=== PATIENT | male | born 1955 | race Caucasian/White ===

== ENCOUNTER 2016-08-24 17:41 | Inpatient (IN) | payer OTHER, MEDICAID ==
[~2016-08-24] VITALS: Ht 175.3 cm; Wt 77.6 kg
[2016-08-24 17:41] VITALS: BP_SYST 127
[2016-08-24] MEDS ORDERED: NACL 0.9% 1,000 ML IV SCH (17:53)
[2016-08-24] MEDS ORDERED: VANCOMYCIN HCL 1,000 MG in D5W 250 ML IV ONE (18:00)
[2016-08-24] MEDS ORDERED: PIPERACILLIN/TAZO 3.38 GM in D5W 50 ML IV ONE (18:00)
[2016-08-24] MEDS ORDERED: DILT240C91 PO (18:15)
[2016-08-24] MEDS ORDERED: MULT PO (18:15)
[2016-08-24] MEDS ORDERED: ALBUTEROL SULFATE 0.083% 2.5 MG/3 ML VIAL.NEB IH ONE (18:15)
[2016-08-24] MEDS ORDERED: GUAI600T86 PO (18:15)
[2016-08-24] MEDS ORDERED: MAGN400O4 PO (18:15)
[2016-08-24] MEDS ORDERED: ACET-2165 PO (18:15)
[2016-08-24] MEDS ORDERED: MELA3TAB37 PO (18:15)
[2016-08-24] MEDS ORDERED: ALBU2.5V7 INH (18:15)
[2016-08-24] MEDS ORDERED: FLUT1BLS3 INH (18:15)
[2016-08-24] MEDS ORDERED: SER25 PO (18:15)
[2016-08-24] MEDS ORDERED: IPRATROPIUM BROM 0.5 MG/2.5 ML VIAL.NEB (ATROVENT) IH ONE (18:15)
[2016-08-24] MEDS ORDERED: ATRMDI INH (18:15)
[2016-08-24] MEDS ORDERED: PRO40 PO (18:15)
[2016-08-24] MEDS ORDERED: FOLI-43 PO (18:15)
[2016-08-24] MEDS ORDERED: methylPREDNISolone SOD SUCC/PF 62.5 MG/ML VIAL IVP ONE (18:15)
[2016-08-24] MEDS ORDERED: CYAN100T PO (18:16)
[2016-08-24] MEDS ORDERED: PYRI25TA13 PO (18:16)
[2016-08-24] MEDS ORDERED: SODI1TAB3 PO (18:16)
[2016-08-24] MEDS ORDERED: ASCO500T20 PO (18:16)
[2016-08-24] MEDS ORDERED: MONT10TA25 PO (18:16)
[2016-08-24] MEDS ORDERED: TRAM50TA92 PO (18:16)
[2016-08-24] MEDS ORDERED: PIPERACILLIN/TAZOBACTAM 3.375 GM/VIAL (ZOSYN) IV ONE ×2 (18:31→21:41)
[2016-08-24 18:40] LABS: BASOPHILS % (AUTO) 0.3 % (0.0-2.0); EOSINOPHILS # (AUTO) 0.1 K/uL (0.0-0.4); HEMATOCRIT 37.2 % (36-54); HEMOGLOBIN 12.4 g/dL (14.0-18.0); LYMPHOCYTES # (AUTO) 2.5 K/uL (1.0-5.5); LYMPHOCYTES % (AUTO) 18.7 % (20.5-51.5); MEAN CORPUSCULAR HEMOGLOBIN 29 pg (27-31); MEAN CORPUSCULAR HGB CONC 33 % (32-36); MEAN CORPUSCULAR VOLUME 88 fL (79.0-98.0); MONOCYTES # (AUTO) 1.2 K/uL (0.0-1.0); MONOCYTES % (AUTO) 8.9 % (1.7-9.3); NEUTROPHILS # (AUTO) 9.4 K/uL (1.8-7.7); NEUTROPHILS % (AUTO) 71.1 % (40.0-70.0); PLATELET COUNT (AUTO) 394 K/uL (130-430); RED BLOOD CELL COUNT(AUTO) 4.24 MIL/uL (4.2-6.2); RED CELL DISTRIBUTION WIDTH 14.4 % (9.0-15.0); WHITE BLOOD COUNT (AUTO) 13.2 K/uL (4.8-10.8)
[2016-08-24 18:42] LABS: INR 1.1 (0.80-1.20); PROTHROMBIN TIME 12.3 SECS (9.5-12.5)
[2016-08-24 18:47] LABS: CALCIUM 9.1 mg/dL (8.4-11.0); CREATININE 0.92 mg/dL (0.55-1.30); POTASSIUM 3.2 mmol/L (3.5-5.1)
[2016-08-24 18:52] LABS: ALBUMIN 3.1 g/dL (3.4-4.8); TOTAL BILIRUBIN 0.5 mg/dL (0.0-1.0); TOTAL PROTEIN, SERUM 7.6 g/dL (6.4-8.3)
[2016-08-24] MEDS ORDERED: POTASSIUM CHLORIDE 20 MEQ TAB.PRT.SR PO ONE (19:00)
[2016-08-24] MEDS ORDERED: VANCOMYCIN HCL 1000 MG/VIAL IV ONE (19:28)
[2016-08-24 20:00] VITALS: BP_SYST 115
[2016-08-24] MEDS ORDERED: traMADol HCL HCL 50 MG TABLET (ULTRAM) PO SCH (20:30)
[2016-08-24] MEDS ORDERED: ACETAMINOPHEN 325 MG TABLET PO PRN (20:30)
[2016-08-24] MEDS ORDERED: LevALBUTEROL HCL 1.25 MG/0.5 ML *CONC.* VIAL.NEB (XOPENEX CONC.) INH PRN (20:30)
[2016-08-24] MEDS: methylPREDNISolone SOD SUCC/PF 62.5 MG/ML VIAL IVP SCH (20:30)
[2016-08-24] MEDS ORDERED: MILK OF MAGNESIA 30 ML UDC PO PRN ×2 (20:30)
[2016-08-24 21:00] VITALS: BP_SYST 113
[2016-08-24] MEDS: FLUTICASONE/VILANTEROL 1 EACH BLST.W.DEV INH SCH (21:00)
[2016-08-24 22:00] VITALS: BP_SYST 117
[2016-08-24] MEDS: ENOXAPARIN SODIUM 40 MG/0.4 ML SYRINGE SUBCUT SCH (22:21)
[2016-08-24 23:00] VITALS: BP_SYST 114
[2016-08-24] MEDS: LevALBUTEROL HCL 1.25 MG/0.5 ML *CONC.* VIAL.NEB (XOPENEX CONC.) INH SCH (23:43)
[2016-08-25] VITALS (25 sets, daily range): BP systolic 103–147
[2016-08-25] MEDS: methylPREDNISolone SOD SUCC/PF 62.5 MG/ML VIAL IVP SCH ×4 (00:11→17:28)
[2016-08-25] MEDS: PIPERACILLIN/TAZO 3.375/DEX-IS 50 ML IV SCH ×4 (00:16→17:25)
[2016-08-25] MEDS ORDERED: VANCOMYCIN HCL 1 GM/NS PREMIX 250 ML IV SCH (06:00)
[2016-08-25 06:33] LABS: EOSINOPHILS % (AUTO) 0.1 % (0.0-4.0); HEMATOCRIT 35.2 % (36-54); HEMOGLOBIN 11.6 g/dL (14.0-18.0); LYMPHOCYTES # (AUTO) 0.5 K/uL (1.0-5.5); LYMPHOCYTES % (AUTO) 6.2 % (20.5-51.5); MEAN CORPUSCULAR HEMOGLOBIN 29 pg (27-31); MEAN CORPUSCULAR HGB CONC 33 % (32-36); MEAN CORPUSCULAR VOLUME 89 fL (79.0-98.0); MONOCYTES # (AUTO) 0.1 K/uL (0.0-1.0); MONOCYTES % (AUTO) 0.8 % (1.7-9.3); NEUTROPHILS # (AUTO) 7.2 K/uL (1.8-7.7); NEUTROPHILS % (AUTO) 92.9 % (40.0-70.0); PLATELET COUNT (AUTO) 362 K/uL (130-430); RED BLOOD CELL COUNT(AUTO) 3.97 MIL/uL (4.2-6.2); RED CELL DISTRIBUTION WIDTH 13.8 % (9.0-15.0); WHITE BLOOD COUNT (AUTO) 7.8 K/uL (4.8-10.8)
[2016-08-25 06:38] LABS: CALCIUM 9.4 mg/dL (8.4-11.0); CREATININE 1.01 mg/dL (0.55-1.30); POTASSIUM 3.6 mmol/L (3.5-5.1)
[2016-08-25 07:07] LABS: BILIRUBIN,URINE 1+ (NEGATIVE); BLOOD, URINE NEGATIVE (NEGATIVE); CLARITY/URINE CLEAR (CLEAR); COLOR,URINE YELLOW (YELLOW); GLUCOSE,URINE NEGATIVE (NEGATIVE); KETONES,URINE 2+ (NEGATIVE); LEUKOCYTE ESTERASE ,URINE NEGATIVE (NEGATIVE); NITRITE, URINE NEGATIVE (NEGATIVE); PROTEIN URINE 2+ (NEGATIVE); UROBILINOGEN,URINE 0.2 (0.2-1.0)
[2016-08-25] MEDS: LevALBUTEROL HCL 1.25 MG/0.5 ML *CONC.* VIAL.NEB (XOPENEX CONC.) INH SCH (07:34)
[2016-08-25] MEDS: MONTELUKAST 10 MG TABLET PO SCH (08:03)
[2016-08-25 08:04] LABS: BACTERIA,URINE RARE /HPF (None Seen); MUCUS,URINE 1+ /LPF (None Seen); RBC,URINE 0-3 /HPF (0-3); WBC,URINE 0-3 /HPF (0-3)
[2016-08-25] MEDS: ASCORBIC ACID 500 MG TABLET PO SCH (08:04)
[2016-08-25] MEDS: PANTOPRAZOLE SODIUM 40 MG TAB PO SCH (08:04)
[2016-08-25] MEDS: QUEtiapine FUMARATE 25 MG TABLET PO SCH (08:04)
[2016-08-25] MEDS: MULTIVITAMINS TAB 1 TABLET PO SCH (08:04)
[2016-08-25] MEDS: FOLIC ACID 1 MG TABLET PO SCH (08:04)
[2016-08-25] MEDS: SODIUM CHLORIDE 500 MG TABLET PO SCH (08:04)
[2016-08-25] MEDS: DILTIAZEM HCL 240 MG CAP.SR.24H PO SCH (08:05)
[2016-08-25] MEDS ORDERED: VANCOMYCIN HCL 1,250 MG in NS 250 ML IV SCH (09:00)
[2016-08-25] MEDS: FLUTICASONE/VILANTEROL 1 EACH BLST.W.DEV INH SCH ×2 (09:12→22:18)
[2016-08-25] MEDS: AZITHROMYCIN 500 MG in NS 250 ML IV SCH (17:28)
[2016-08-25] MEDS: IPRATROPIUM/ALBUTEROL SULFATE 3 ML AMPUL.NEB INH SCH ×2 (20:49→23:14)
[2016-08-25] MEDS: ENOXAPARIN SODIUM 40 MG/0.4 ML SYRINGE SUBCUT SCH (21:24)
[2016-08-26] VITALS (19 sets, daily range): BP systolic 100–155
[2016-08-26] MEDS: methylPREDNISolone SOD SUCC/PF 62.5 MG/ML VIAL IVP SCH ×5 (00:05→23:39)
[2016-08-26] MEDS: PIPERACILLIN/TAZO 3.375/DEX-IS 50 ML IV SCH ×5 (00:05→23:39)
[2016-08-26] MEDS: IPRATROPIUM/ALBUTEROL SULFATE 3 ML AMPUL.NEB INH SCH ×7 (03:00→22:52)
[2016-08-26 06:50] LABS: BASOPHILS % (AUTO) 0.2 % (0.0-2.0); HEMATOCRIT 33.8 % (36-54); HEMOGLOBIN 11.1 g/dL (14.0-18.0); LYMPHOCYTES # (AUTO) 0.5 K/uL (1.0-5.5); LYMPHOCYTES % (AUTO) 5.2 % (20.5-51.5); MEAN CORPUSCULAR HEMOGLOBIN 29 pg (27-31); MEAN CORPUSCULAR HGB CONC 33 % (32-36); MEAN CORPUSCULAR VOLUME 89 fL (79.0-98.0); MONOCYTES # (AUTO) 0.4 K/uL (0.0-1.0); MONOCYTES % (AUTO) 4.1 % (1.7-9.3); NEUTROPHILS # (AUTO) 9.3 K/uL (1.8-7.7); NEUTROPHILS % (AUTO) 90.5 % (40.0-70.0); PLATELET COUNT (AUTO) 377 K/uL (130-430); RED BLOOD CELL COUNT(AUTO) 3.81 MIL/uL (4.2-6.2); RED CELL DISTRIBUTION WIDTH 14.2 % (9.0-15.0); WHITE BLOOD COUNT (AUTO) 10.2 K/uL (4.8-10.8)
[2016-08-26 07:21] LABS: CALCIUM 9.2 mg/dL (8.4-11.0); CREATININE 0.82 mg/dL (0.55-1.30); POTASSIUM 3.3 mmol/L (3.5-5.1)
[2016-08-26 07:54] LABS: BILIRUBIN,URINE NEGATIVE (NEGATIVE); BLOOD, URINE NEGATIVE (NEGATIVE); CLARITY/URINE CLEAR (CLEAR); COLOR,URINE YELLOW (YELLOW); GLUCOSE,URINE 1+ (NEGATIVE); KETONES,URINE 1+ (NEGATIVE); LEUKOCYTE ESTERASE ,URINE NEGATIVE (NEGATIVE); NITRITE, URINE NEGATIVE (NEGATIVE); PROTEIN URINE 2+ (NEGATIVE); UROBILINOGEN,URINE 0.2 (0.2-1.0)
[2016-08-26] MEDS: ASCORBIC ACID 500 MG TABLET PO SCH (08:11)
[2016-08-26] MEDS: QUEtiapine FUMARATE 25 MG TABLET PO SCH (08:11)
[2016-08-26] MEDS: MONTELUKAST 10 MG TABLET PO SCH (08:11)
[2016-08-26] MEDS: PANTOPRAZOLE SODIUM 40 MG TAB PO SCH (08:11)
[2016-08-26] MEDS: FOLIC ACID 1 MG TABLET PO SCH (08:11)
[2016-08-26] MEDS: MULTIVITAMINS TAB 1 TABLET PO SCH (08:11)
[2016-08-26] MEDS: FLUTICASONE/VILANTEROL 1 EACH BLST.W.DEV INH SCH ×2 (08:12→21:00)
[2016-08-26] MEDS: SODIUM CHLORIDE 500 MG TABLET PO SCH (08:12)
[2016-08-26] MEDS: DILTIAZEM HCL 240 MG CAP.SR.24H PO SCH (08:12)
[2016-08-26 09:49] LABS: BACTERIA,URINE FEW /HPF (None Seen); RBC,URINE 0-3 /HPF (0-3); WBC,URINE 0-3 /HPF (0-3)
[2016-08-26 09:50] LABS: MUCUS,URINE None Seen /LPF (None Seen)
[2016-08-26] MEDS ORDERED: traZODone HCL 50 MG TABLET (DESYREL) PO PRN (14:15)
[2016-08-26] MEDS ORDERED: POTASSIUM CHLORIDE 20 MEQ TAB.PRT.SR PO ONE (15:00)
[2016-08-26] MEDS: AZITHROMYCIN 500 MG in NS 250 ML IV SCH (16:32)
[2016-08-26] MEDS: ENOXAPARIN SODIUM 40 MG/0.4 ML SYRINGE SUBCUT SCH (21:03)
[2016-08-26] MEDS: MUPIROCIN 2% TOPICAL OINTMENT 22 GM TP SCH (21:03)
[2016-08-27] VITALS (7 sets, daily range): BP systolic 130–142
[2016-08-27] MEDS: IPRATROPIUM/ALBUTEROL SULFATE 3 ML AMPUL.NEB INH SCH ×6 (03:49→23:17)
[2016-08-27] MEDS: PIPERACILLIN/TAZO 3.375/DEX-IS 50 ML IV SCH ×4 (06:07→23:56)
[2016-08-27] MEDS: methylPREDNISolone SOD SUCC/PF 62.5 MG/ML VIAL IVP SCH ×4 (06:07→23:55)
[2016-08-27 06:29] LABS: BASOPHILS % (AUTO) 0.1 % (0.0-2.0); HEMATOCRIT 37.7 % (36-54); HEMOGLOBIN 12.5 g/dL (14.0-18.0); LYMPHOCYTES # (AUTO) 0.5 K/uL (1.0-5.5); LYMPHOCYTES % (AUTO) 4.2 % (20.5-51.5); MEAN CORPUSCULAR HEMOGLOBIN 29 pg (27-31); MEAN CORPUSCULAR HGB CONC 33 % (32-36); MEAN CORPUSCULAR VOLUME 88 fL (79.0-98.0); MONOCYTES # (AUTO) 0.3 K/uL (0.0-1.0); MONOCYTES % (AUTO) 2.2 % (1.7-9.3); NEUTROPHILS # (AUTO) 10.8 K/uL (1.8-7.7); NEUTROPHILS % (AUTO) 93.5 % (40.0-70.0); PLATELET COUNT (AUTO) 472 K/uL (130-430); RED BLOOD CELL COUNT(AUTO) 4.26 MIL/uL (4.2-6.2); RED CELL DISTRIBUTION WIDTH 13.9 % (9.0-15.0); WHITE BLOOD COUNT (AUTO) 11.6 K/uL (4.8-10.8)
[2016-08-27 06:44] LABS: CALCIUM 9.7 mg/dL (8.4-11.0); CHLORIDE 101 mmol/L (98-107); CREATININE 0.97 mg/dL (0.55-1.30); GLUCOSE 145 mg/dL (70-99); POTASSIUM 3.7 mmol/L (3.5-5.1); SODIUM SERUM 137 mmol/L (136-145); UREA NITROGEN, BLOOD 16 mg/dL (8-21)
[2016-08-27 06:45] LABS: PHOSPHORUS 2.3 mg/dL (2.7-4.5)
[2016-08-27 06:56] LABS: ANION GAP < 3 (5-15); GFR AFRICAN AMERICAN 101 mL/min (>90)
[2016-08-27] MEDS: SODIUM CHLORIDE 500 MG TABLET PO SCH (08:40)
[2016-08-27] MEDS: PANTOPRAZOLE SODIUM 40 MG TAB PO SCH (08:40)
[2016-08-27] MEDS: DILTIAZEM HCL 240 MG CAP.SR.24H PO SCH (08:40)
[2016-08-27] MEDS: FOLIC ACID 1 MG TABLET PO SCH (08:40)
[2016-08-27] MEDS: MUPIROCIN 2% TOPICAL OINTMENT 22 GM TP SCH ×2 (08:40→20:31)
[2016-08-27] MEDS: FLUTICASONE/VILANTEROL 1 EACH BLST.W.DEV INH SCH (08:41)
[2016-08-27] MEDS: QUEtiapine FUMARATE 25 MG TABLET PO SCH (08:41)
[2016-08-27] MEDS: ASCORBIC ACID 500 MG TABLET PO SCH (08:41)
[2016-08-27] MEDS: MONTELUKAST 10 MG TABLET PO SCH (08:41)
[2016-08-27] MEDS: MULTIVITAMINS TAB 1 TABLET PO SCH (08:41)
[2016-08-27] MEDS: guaiFENesin ER 600 MG TAB PO SCH ×2 (08:41→21:24)
[2016-08-27] MEDS ORDERED: PROLIX PO (15:30)
[2016-08-27] MEDS: AZITHROMYCIN 500 MG in NS 250 ML IV SCH (16:01)
[2016-08-27] MEDS ORDERED: COMMUNICATION ORDER XX ONE (17:15)
[2016-08-27] MEDS: BUDESONIDE 0.5 MG/2 ML AMPUL.NEB INH SCH (19:57)
[2016-08-27] MEDS: ENOXAPARIN SODIUM 40 MG/0.4 ML SYRINGE SUBCUT SCH (20:30)
[2016-08-27] MEDS: FLUPHENAZINE 5 MG PO SCH (20:31)
[2016-08-28] VITALS: BP_SYST 132
[2016-08-28 03:23] VITALS: BP_SYST 125
[2016-08-28] MEDS: IPRATROPIUM/ALBUTEROL SULFATE 3 ML AMPUL.NEB INH SCH ×6 (04:10→23:42)
[2016-08-28] MEDS: PIPERACILLIN/TAZO 3.375/DEX-IS 50 ML IV SCH ×4 (05:28→23:22)
[2016-08-28] MEDS: methylPREDNISolone SOD SUCC/PF 62.5 MG/ML VIAL IVP SCH ×4 (05:28→23:23)
[2016-08-28 07:31] VITALS: BP_SYST 148
[2016-08-28] MEDS: BUDESONIDE 0.5 MG/2 ML AMPUL.NEB INH SCH ×2 (07:41→19:28)
[2016-08-28] MEDS: MULTIVITAMINS TAB 1 TABLET PO SCH (08:12)
[2016-08-28] MEDS: FOLIC ACID 1 MG TABLET PO SCH (08:12)
[2016-08-28] MEDS: PANTOPRAZOLE SODIUM 40 MG TAB PO SCH (08:12)
[2016-08-28] MEDS: SODIUM CHLORIDE 500 MG TABLET PO SCH (08:12)
[2016-08-28] MEDS: ASCORBIC ACID 500 MG TABLET PO SCH (08:12)
[2016-08-28] MEDS: MONTELUKAST 10 MG TABLET PO SCH (08:12)
[2016-08-28] MEDS: DILTIAZEM HCL 240 MG CAP.SR.24H PO SCH (08:13)
[2016-08-28] MEDS: MUPIROCIN 2% TOPICAL OINTMENT 22 GM TP SCH ×2 (08:13→20:23)
[2016-08-28 12:04] VITALS: BP_SYST 149
[2016-08-28 17:00] VITALS: BP_SYST 137
[2016-08-28] MEDS: AZITHROMYCIN 500 MG in NS 250 ML IV SCH (17:10)
[2016-08-28 20:00] VITALS: BP_SYST 143
[2016-08-28] MEDS: ENOXAPARIN SODIUM 40 MG/0.4 ML SYRINGE SUBCUT SCH (20:22)
[2016-08-28] MEDS: FLUPHENAZINE 5 MG PO SCH (20:23)
[2016-08-28] MEDS: guaiFENesin ER 600 MG TAB PO SCH (22:18)
[2016-08-29] VITALS: BP_SYST 142
[2016-08-29] MEDS: IPRATROPIUM/ALBUTEROL SULFATE 3 ML AMPUL.NEB INH SCH ×6 (03:00→23:53)
[2016-08-29 04:00] VITALS: BP_SYST 127
[2016-08-29] MEDS: methylPREDNISolone SOD SUCC/PF 62.5 MG/ML VIAL IVP SCH ×3 (05:27→17:14)
[2016-08-29] MEDS: PIPERACILLIN/TAZO 3.375/DEX-IS 50 ML IV SCH ×3 (05:27→17:14)
[2016-08-29 07:49] VITALS: BP_SYST 122
[2016-08-29] MEDS: ASCORBIC ACID 500 MG TABLET PO SCH (08:22)
[2016-08-29] MEDS: SODIUM CHLORIDE 500 MG TABLET PO SCH (08:22)
[2016-08-29] MEDS: MONTELUKAST 10 MG TABLET PO SCH (08:22)
[2016-08-29] MEDS: PANTOPRAZOLE SODIUM 40 MG TAB PO SCH (08:22)
[2016-08-29] MEDS: FOLIC ACID 1 MG TABLET PO SCH (08:22)
[2016-08-29] MEDS: MULTIVITAMINS TAB 1 TABLET PO SCH (08:22)
[2016-08-29] MEDS: DILTIAZEM HCL 240 MG CAP.SR.24H PO SCH (08:23)
[2016-08-29] MEDS: MUPIROCIN 2% TOPICAL OINTMENT 22 GM TP SCH ×2 (08:23→20:28)
[2016-08-29] MEDS: BUDESONIDE 0.5 MG/2 ML AMPUL.NEB INH SCH ×2 (08:35→19:35)
[2016-08-29 12:28] VITALS: BP_SYST 153
[2016-08-29 16:10] VITALS: BP_SYST 150
[2016-08-29] MEDS: AZITHROMYCIN 500 MG in NS 250 ML IV SCH (16:13)
[2016-08-29 19:20] VITALS: BP_SYST 148
[2016-08-29] MEDS: ENOXAPARIN SODIUM 40 MG/0.4 ML SYRINGE SUBCUT SCH (20:27)
[2016-08-29] MEDS: FLUPHENAZINE 5 MG PO SCH (20:28)
[2016-08-30] VITALS (7 sets, daily range): BP systolic 126–152
[2016-08-30] MEDS: methylPREDNISolone SOD SUCC/PF 62.5 MG/ML VIAL IVP SCH ×2 (00:32→05:57)
[2016-08-30] MEDS: PIPERACILLIN/TAZO 3.375/DEX-IS 50 ML IV SCH ×4 (00:32→17:32)
[2016-08-30] MEDS: IPRATROPIUM/ALBUTEROL SULFATE 3 ML AMPUL.NEB INH SCH ×3 (03:00→11:02)
[2016-08-30 06:09] LABS: CALCIUM 8.6 mg/dL (8.4-11.0); CHLORIDE 101 mmol/L (98-107); CREATININE 0.82 mg/dL (0.55-1.30); GLUCOSE 158 mg/dL (70-99); POTASSIUM 3.9 mmol/L (3.5-5.1); SODIUM SERUM 136 mmol/L (136-145); UREA NITROGEN, BLOOD 14 mg/dL (8-21)
[2016-08-30 06:15] LABS: BASOPHILS % (AUTO) 0.2 % (0.0-2.0); HEMATOCRIT 35.3 % (36-54); HEMOGLOBIN 11.5 g/dL (14.0-18.0); LYMPHOCYTES # (AUTO) 0.6 K/uL (1.0-5.5); LYMPHOCYTES % (AUTO) 5.2 % (20.5-51.5); MEAN CORPUSCULAR HEMOGLOBIN 29 pg (27-31); MEAN CORPUSCULAR HGB CONC 33 % (32-36); MEAN CORPUSCULAR VOLUME 89 fL (79.0-98.0); MONOCYTES # (AUTO) 0.3 K/uL (0.0-1.0); MONOCYTES % (AUTO) 2.9 % (1.7-9.3); NEUTROPHILS # (AUTO) 10.6 K/uL (1.8-7.7); NEUTROPHILS % (AUTO) 91.7 % (40.0-70.0); PLATELET COUNT (AUTO) 454 K/uL (130-430); RED BLOOD CELL COUNT(AUTO) 3.99 MIL/uL (4.2-6.2); RED CELL DISTRIBUTION WIDTH 14.6 % (9.0-15.0); WHITE BLOOD COUNT (AUTO) 11.5 K/uL (4.8-10.8)
[2016-08-30 06:40] LABS: GFR AFRICAN AMERICAN 122 mL/min (>90)
[2016-08-30 06:43] LABS: ANION GAP < 3 (5-15)
[2016-08-30] MEDS: BUDESONIDE 0.5 MG/2 ML AMPUL.NEB INH SCH (07:09)
[2016-08-30] MEDS: PANTOPRAZOLE SODIUM 40 MG TAB PO SCH (08:51)
[2016-08-30] MEDS: FOLIC ACID 1 MG TABLET PO SCH (08:51)
[2016-08-30] MEDS: SODIUM CHLORIDE 500 MG TABLET PO SCH (08:51)
[2016-08-30] MEDS: MONTELUKAST 10 MG TABLET PO SCH (08:51)
[2016-08-30] MEDS: MULTIVITAMINS TAB 1 TABLET PO SCH (08:51)
[2016-08-30] MEDS: DILTIAZEM HCL 240 MG CAP.SR.24H PO SCH (08:51)
[2016-08-30] MEDS: MUPIROCIN 2% TOPICAL OINTMENT 22 GM TP SCH (08:52)
[2016-08-30] MEDS: ASCORBIC ACID 500 MG TABLET PO SCH (08:52)
[2016-08-30] MEDS: methylPREDNISolone SOD SUCC 40 MG/ML VIAL IVP SCH ×2 (12:00→17:32)
[2016-08-30] MEDS ORDERED: IPRATROPIUM/ALBUTEROL SULFATE 3 ML AMPUL.NEB INH SCH (13:00)
[2016-08-31 10:22] LABS: BLOOD GAS PH 7.363 (7.350-7.450)
[2016-08-31 10:23] LABS: BLOOD GAS BASE EXCESS 4.1 mmol/L (-3.0-3.0); BLOOD GAS HHB 6.1 % (0.0-6.0); BLOOD O2Hb% 92.6 % (94.0-97.0)
== END 2016-08-30 20:20 | DRG 177 ==
LOC: SED 17:41 → SIC 20:10 → STU 08-26 17:15
PROVIDERS: ADMIT Family Medicine; ATTEND Family Medicine
DX: J15.6 Pneumonia due to other Gram-negative bacteria (principal); J96.21 Acute and chronic respiratory failure with hypoxia; J44.0 Chronic obstructive pulmonary disease with (acute) lower respiratory infection; J44.1 Chronic obstructive pulmonary disease with (acute) exacerbation; E44.1 Mild protein-calorie malnutrition; F20.0 Paranoid schizophrenia; I10 Essential (primary) hypertension; J20.9 Acute bronchitis, unspecified; Z87.891 Personal history of nicotine dependence; Z99.81 Dependence on supplemental oxygen; Z79.899 Other long term (current) drug therapy; Z68.25 Body mass index [BMI] 25.0-25.9, adult; Z22.322 Carrier or suspected carrier of Methicillin resistant Staphylococcus aureus
CPT/HCPCS: 36415; 36600; 71010; 80048; 80053; 81000-TC; 82803-TC; 83605; 83735-TC; 83880; 84100-TC; 84484; 85025; 85610-TC; 85730-TC; 87040-TC; 87081; 87086; 94640; 94660; 94760; 96365; 96375; 99285; J0456; J1030; J1650; J2543; J2930; J3370; J7030; J7050; J7060